=== PATIENT | male | born 1935 | race Caucasian/White ===

== ENCOUNTER 2019-03-12 13:23 | Observation (INO) | payer OTHER, SELFPAY ==
[2019-03-12] VITALS (8 sets, daily range): BP systolic 110–140; BP diastolic 45–60; PULSE 61–77; RESP 12–19; TEMP 36.2–36.4; O2SAT 94–100; BMI 35.6
[2019-03-12] MEDS: SODIUM CHLORIDE 0.9% 1,000 ML 150 ML IV (13:15)
[2019-03-12] MEDS: FAMOTIDINE 20 MG/50 ML PIGGYBACK 200 MG IV (13:15)
--- NOTE | 2019-03-12 13:29 | ED.ALLEREA ---
HPI - Allergic Reaction General Chief complaint: Allergic Reaction Stated complaint: anaphalaxis Time Seen by Provider: 03/12/19 13:28 Source: patient Mode of arrival: Ambulatory Limitations: no limitations History of Present Illness HPI narrative: 83-year-old male comes to the emergency department with complaint of anaphylaxis. Patient states that he had not any new exposures that he is aware of. He has a history of allergy to iodinated contrast. He has not had any contrast recently. Patient had his normal medic medications, his normal breakfast. He had cough ENT. These are all things that he normally drinks and are not new products. He has not had any medications or dose changes. He states he takes alendronate which is once weekly but he has been on that for 3 weeks. Patient is denying any other new changes or suspicious exposures. He had itching, noted he had swelling of his lips, he had stridor and muffled voice. He had lightheadedness and had episode of syncope with about a minute loss of consciousness. This occurred while he was on the toilet 1st noticed symptoms. Patient states that he did not hit his head. He was able to lower himself to the floor. He denies any chest pain or shortness of breath. He did have vomiting with EMS. He did not have any diarrhea. He had rash and urticaria with itching. He received 3 doses of epinephrine from EMS and route as well as Benadryl 50 mg. Patient states he feels shaky at this time but his symptoms have almost completely resolved. His rash is nearly resolving. His lip swelling has been decreasing. And his voice has improved rapidly. He does have a cardiac history with defibrillator in place for a cardiac arrhythmia. He Shiley states atrial fibrillation but was not 100% sure. Patient it is like is on Pradaxa for this. He does have his card for his defibrillator. Related Data Home Medications Medication Instructions Recorded Confirmed alendronate 70 mg PO QWEEK 03/12/19 03/12/19 amiodarone 200 mg PO DAILY 03/12/19 03/12/19 amlodipine 2.5 mg PO DAILY 03/12/19 03/12/19 dabigatran etexilate [Pradaxa] 150 mg PO BID 03/12/19 03/12/19 finasteride 5 mg PO DAILY 03/12/19 03/12/19 furosemide 20 mg PO BID 03/12/19 03/12/19 losartan 25 mg PO QPM 03/12/19 03/12/19 losartan 50 mg PO QAM 03/12/19 03/12/19 potassium chloride [K-Tab] 10 meq PO DAILY 03/12/19 03/12/19 simvastatin 20 mg PO QPM 03/12/19 03/12/19 tamsulosin 0.4 mg PO QPM 03/12/19 03/12/19 Review of Systems Review of Systems ROS Unobtainable: All systems reviewed & are unremarkable except as noted in HPI and below PFSH Medical History Arrhythmia (Acute) Atrial fibrillation (Acute) BPH (benign prostatic hyperplasia) (Acute) Hyperlipidemia (Acute) Hypertension (Acute) Osteoporosis (Acute) Surgical History AICD (automatic cardioverter/defibrillator) present (Acute) H/O cataract removal with insertion of prosthetic lens (Acute) H/O umbilical hernia repair (Acute) History of tonsillectomy (Acute) Family History (Updated 03/12/19 @ 19:02 by Lorena Archibald DO) Mother Cervical cancer Father No problems noted. Social History (Updated 03/12/19 @ 15:26 by Batsheva Trevino DO) Smoking Status: Never smoker alcohol intake: current substance use type: does not use Family History Mother Cervical cancer Father No problems noted. Social History (Updated 03/12/19 @ 15:26 by Batsheva Trevino DO) Smoking Status: Never smoker alcohol intake: current substance use type: does not use Exam Narrative Exam Narrative: GEN: Obese male, alert and oriented x 3, patient appears to be in moderate distress. HEENT: Atraumatic, pupils are equal round reactive to light, extraocular movements are intact, nares are clear, patient has significant swelling of his right upper lip although patient and EMS state is improved no oropharyngeal swelling. Throat is clear without any exudates, erythema, tonsillar enlargement or uvular deviation, no stridor. No muffled voice. HEART: Regular rate and rhythm without murmur, clicks, rubs. Pulses are equal in upper and lower extremities LUNGS:Lungs clear to auscultation, no wheezes, rales, crackles, chest moves symmetrically tachypnea or accessory muscle use. ABD:bowel sounds normal, soft, non-tender, no guarding, rebound, rigidity, no masses noted, no hepatosplenomegaly, patient has some emesis on his shirt. :No CVA tenderness MSCL: Non-tender, no muscle atrophy, muscles strength 5/5 upper and lower extremities, full range of motion. NEURO:CN 2-12 intact, sensation normal, reflexes 2/4 upper and lower extremities. SKIN: Urticaria across the abdomen as well as bilateral axilla. It is erythematous raised wheals. Initial Vital Signs Initial Vital Signs: Vital Signs Temperature 97.1 F L 03/12/19 13:30 Pulse Rate 62 03/12/19 13:30 Respiratory Rate 12 03/12/19 13:30 Blood Pressure 128/53 L 03/12/19 13:30 Pulse Oximetry 97 03/12/19 13:30 Course Orders Ordered: ED Orders 03/12/19 13:28 XR chest 1V Stat 03/12/19 13:29 EKG-12 Lead Stat 03/12/19 13:30 Complete Blood Count AUTO DIFF Stat 03/12/19 13:52 Comprehensive Metabolic Panel Urgent Troponin I Urgent Acetaminophen (Tylenol) 650 mg PO Q6HR PRN PRN Reason: As Needed for Fever/Mild Pain Al Hydrox/Mg Hydrox/Simethicone (Maalox Plus) 30 ml PO Q6HR PRN PRN Reason: Dyspepsia Bisacodyl (Dulcolax) 10 mg RI DAILY PRN PRN Reason: Constipation Calcium Carbonate (Tums) 1,000 mg PO Q4HR PRN PRN Reason: Dyspepsia Heparin Sodium (Porcine) (Heparin) 5,000 unit SUBCUT BID KATALINA Sodium Chloride (Normal Saline 0.9%) 1,000 mls @ 150 mls/hr IV CONT KATALINA Last Infusion: 03/12/19 16:12 Dose: 0 mls/hr Documented by: Admin: 03/12/19 13:15 Dose: 150 mls/hr Documented by: YAHAIRA Magnesium Hydroxide (Milk Of Magnesia) 30 ml PO DAILY PRN PRN Reason: Constipation Discontinued Medications Famotidine (Pepcid) 20 mg in 50 mls @ 200 mls/hr IV NOW ONE Stop: 03/12/19 13:42 Last Infusion: 03/12/19 13:30 Dose: 0 mls/hr Documented by: Admin: 03/12/19 13:15 Dose: 200 mls/hr Documented by: YAHAIRA Methylprednisolone (Solu-Medrol 125 Mg Vial) 125 mg IV NOW ONE Stop: 03/12/19 13:29 Last Admin: 03/12/19 13:39 Dose: 125 mg Documented by: YAHAIRA Vital Signs Vital signs: Vital Signs - 8 hr 03/12/19 13:30 03/12/19 14:00 03/12/19 15:00 Temperature 97.1 F L Pulse Rate 62 67 61 Respiratory Rate 12 19 15 Blood Pressure 128/53 L Blood Pressure [Right Arm] 127/51 L 125/49 L Pulse Oximetry 97 100 100 03/12/19 15:30 Temperature Pulse Rate 62 Respiratory Rate 17 Blood Pressure Blood Pressure [Right Arm] 110/45 L Pulse Oximetry 98 MDM - Allergic Reaction Lab Data Attestation: I reviewed the patient's lab results. Result diagrams: 03/12/19 13:30 03/12/19 13:52 Labs: Lab Results 03/12/19 03/12/19 Range/Units 13:30 13:52 WBC 11.2 H (4.5-11.0) X10^3/uL RBC 5.08 (4.5-5.9) X10^6/uL Hgb 15.9 (13.5-17.5) g/dL Hct 46.3 (41-53) % MCV 91.1 (80-100) fL MCH 31.4 (26-34) PG MCHC 34.4 (30-36) % RDW 13.5 (11.6-14.8) % Plt Count 265 (150-400) X10^3/uL Neut % (Auto) 54.2 (50-75) % Lymph % (Auto) 37.5 (25-40) % [place] % (Auto) 6.8 (3-14) % Eos % (Auto) 0.5 L (2-4) % Baso % (Auto) 1.0 (0-2) % Neut # (Auto) 6100 (5368-5506) /uL Lymph # (Auto) 4200 (1637-7959) /uL [place] # (Auto) 800 (0-900) /uL Eos # (Auto) 100 (0-450) /uL Baso # (Auto) 100 (0-100) /uL Sodium 138 (137-145) mmol/L Potassium 3.7 (3.4-5.1) mmol/L Chloride 103 (98-107) mmol/L Carbon Dioxide 25 (22-32) mmol/L BUN 28 H (9-20) mg/dL Creatinine 1.20 (0.66-1.25) mg/dL Estimated GFR 57.8 L (>60) mL/min BUN/Creatinine Ratio 23.3 H (6-22) Glucose 164 H (80-110) mg/dL Calcium 8.7 (8.4-10.2) mg/dL Total Bilirubin 0.6 (0.2-1.3) mg/dL AST 30 (17-59) IU/L ALT 35 (21-72) IU/L Alkaline Phosphatase 65 (38-126) U/L Troponin I < 0.012 (0.01-0.034) ng/mL Total Protein 6.2 L (6.3-8.2) g/dL Albumin 3.8 (3.5-5.0) g/dL Globulin 2.4 (1.7-4.1) g/dL Albumin/Globulin Ratio 1.6 (1.0-2.8) Imaging Data Chest x-ray: Radiologist's impression: [address] [address] XRay Report Signed Patient: Parish Swenson EMR#: [id number] : 6Acct:[id number] Age/Sex: 83 / MDate of Service: 03/12/19 Loc: ED Accession Number: [id number] Procedure: XR chest 1V Ordering Provider: Batsheva Trevino D.O. PROCEDURE: XR CHEST 1V INDICATIONS: anaphylaxis. vomiting TECHNIQUE: One view of the chest was acquired. COMPARISON: None. FINDINGS: Surgical changes and devices: Is a cardiac pacemaker in appropriate position. Lungs and pleura: Lungs are clear. No pleural effusions or pneumothorax. Mediastinum: Mediastinal contours appear normal. Heart size is normal. Bones and chest wall: No suspicious bony lesions. Overlying soft tissues appear unremarkable. IMPRESSION: No acute cardiopulmonary disease. Dictated by: Mora Farley M.D. on 03/12/2019 at 14:22 Approved by: Mora Farley M.D. on 03/12/2019 at 14:27 ECG Data Attestation: I personally reviewed and interpreted this ECG as follows: Interpretation: Sinus bradycardia with a left bundle branch block. Rate of 59 P are 123 QRS of 140 and QTC of 469. No ST changes. No priors available. MDM Narrative Medical decision making narrative: Patient's urticaria has almost completely resolved on re-evaluation, the swelling of his lips I can't really appreciate maybe very mild at this point but has significantly improved from his initial arrival. Patient feels much better although still shaky. On repeat evaluation swelling has resolved shakiness has resolved. Patient's initial lab work show a mild leukocytosis, no elevation in troponin, chest x-ray and EKG showed left bundle branch but no other acute changes. Patient and I discussed you I would like to observation as he has had 3 doses of epi required for his symptoms to resolve. I spoke with Dr. Archibald our hospitalist who accepts. Discharge Plan Departure Patient Disposition: Admitted as Observation Clinical Impression: Anaphylactic reaction, Syncope Discharge Date/Time: 03/12/19 16:13 Admit Date/Time: 03/12/19 15:52 Admit Provider: Lorena Archibald
[2019-03-12 13:35] LABS: Add Manual Diff / Slide Review NO; Basophils Absolute Auto 100 /uL (0-100); Eosinophils Absolute Auto 100 /uL (0-450); Eosinophils Percent Auto 0.5 % (2-4); Hematocrit 46.3 % (41-53); Hemoglobin 15.9 g/dL (13.5-17.5); Lymphocytes Absolute Auto 4200 /uL (1100-4500); Lymphocytes Percent Auto 37.5 % (25-40); Mean Corpuscular HGB Conc 34.4 % (30-36); Mean Corpuscular Hemoglobin 31.4 PG (26-34); Mean Corpuscular Volume 91.1 fL (80-100); Monocytes Absolute Auto 800 /uL (0-900); Monocytes Percent Auto 6.8 % (3-14); Neutrophils Absolute Auto 6100 /uL (1500-7000); Neutrophils Percent Auto 54.2 % (50-75); Platelet Count 265 X10^3/uL (150-400); Red Blood Cell Count 5.08 X10^6/uL (4.5-5.9); Red Cell Distribution Width 13.5 % (11.6-14.8); White Blood Cell Count 11.2 X10^3/uL (4.5-11.0)
[2019-03-12] MEDS: methylPREDNISolone 125 MG/2 ML VIAL IV (13:39)
--- NOTE | 2019-03-12 13:39 | PC.NURSE ---
Pt arrived via EMS AFD for anaphylaxis. only known allergy to iodine which he has not touched today. Per EMS stridorous on scene with diffuse urticaria on trunk and arms as well as severe periorbital edema and swollen lips. 0.9mg epi IM, 50mg benadryl, and 4mg zofran given in field. arrived with emesis on shirt and sheets. protecting airway at this time. Lungs sound clear. Pt with ICD. placed on cardiac monitoring. HR 58-60 at this time SB. Per EMS, urticaria improving, speech less hoarse than on scene and swelling in face decreasing. Pepcid and solumedrol given on arrival. Arrived with EMS 18G in RFA and ED placed 20G LAC. labs sent. Dr Trevino at bedside. remains on 2L O2. XR obtained. Will continue to monitor
[2019-03-12 14:14] LABS: Alanine Aminotransferase 35 IU/L (21-72); Albumin 3.8 g/dL (3.5-5.0); Albumin Globulin Ratio 1.6 (1.0-2.8); Alkaline Phosphatase 65 U/L (38-126); Aspartate Aminotransferase 30 IU/L (17-59); BUN Creatinine Ratio 23.3 (6-22); Bilirubin Total 0.6 mg/dL (0.2-1.3); Blood Urea Nitrogen 28 mg/dL (9-20); Calcium 8.7 mg/dL (8.4-10.2); Carbon Dioxide 25 mmol/L (22-32); Chloride 103 mmol/L (98-107); Estimated Glomerular Filt Rate 57.8 mL/min (>60); Globulin 2.4 g/dL (1.7-4.1); Glucose 164 mg/dL (80-110); HEMOLYSIS < 15 (0-50); Potassium 3.7 mmol/L (3.4-5.1); Sodium 138 mmol/L (137-145); Total Protein 6.2 g/dL (6.3-8.2)
[2019-03-12 14:25] LABS: Troponin I < 0.012 ng/mL (0.01-0.034)
--- NOTE | 2019-03-12 15:02 | PC.NURSE ---
pt appears well. susanna, advised normal from multiple doses of epi. speech clear. resting. urticaria no longer noted. remains on cardiac monitoring. NAD
--- NOTE | 2019-03-12 18:59 | PM.HP.1 ---
History of Present Illness History of Present Illness Date Patient Seen: 03/12/19 Chief complaint: anaphalaxis Narrative: Parish Swenson is a 83-year-old male with past medical history significant for hypertension, hyperlipidemia, BPH, atrial fibrillation status post pacemaker and on Pradaxa who presented to the ED via EMS with an acute anaphylactic reaction. The patient reports that he was in his usual state of health when he awoke this morning. He went about his normal routine and ate breakfast which included raisin bran, toast, and a cup of coffee. He then did the dishes and met the cable service man outside his home to fix the cable connection. He pulled his mower out of the shed and followed the cable man to various spots throughout the yard. He then went inside and had some indigestion in his epigastrum then went to the bathroom. While the patient was having a bowel movement he began having fulminant pruritus of his entire body including his ears and chest with uticarial rash. He then reports it felt as though he was getting a fever blister on his lip and it began getting harder and harder so he slid off the toilet and crawled to the bathroom door and opened it to call out for his daughter. The patient subsequently had a syncopal episode in which he was unconscious for seconds to a minute. He did not hit his head. His daughter called 911 and EMS arrived and found the patient with muffled voice and stridor. The patient received epinephrine x 3 and Benadryl. When he arrived to the ED his uticarial rash and lip swelling had mostly resolved and at the time of my exam there are no significant findings on clinical exam. He received methylprednisolone 125 mg IV x 1 and famotidine. He currently endorses mild throat tightness that is chronic with dry cough with occasional phlegm. He denies any chest pain or shortness of breath. He did have vomiting with EMS. He did not have any diarrhea but reports voluminous BM. He also has some mild tenderness to touch on posterior aspect of left arm possibly where he slid off the toilet. He has no other complaints and denies headache, lightheadedness, dizziness, vision changes such as double vision or blurry vision, diaphoresis, sore throat, shortness of breath, fever, chills nausea, vomiting, fever, chills, dysuria, diarrhea or constipation. The patient was admitted for close observation overnight. 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 Patient History Medical History Arrhythmia (Acute) Atrial fibrillation (Acute) BPH (benign prostatic hyperplasia) (Acute) Hyperlipidemia (Acute) Hypertension (Acute) Osteoporosis (Acute) Surgical History AICD (automatic cardioverter/defibrillator) present (Acute) H/O cataract removal with insertion of prosthetic lens (Acute) H/O umbilical hernia repair (Acute) History of tonsillectomy (Acute) Family History Mother Cervical cancer Father No problems noted. Social History (Updated 03/12/19 @ 15:26 by Batsheva Trevino DO) Smoking Status: Never smoker alcohol intake: current substance use type: does not use Family & Social History Family History Mother Cervical cancer Father No problems noted. Safety & Behavioral: Feels Safe in Current Yes Environment Been Physically Hurt or No Threatened By a Person Suicidal Ideation Description None Suicide Plan Description No Plan Tobacco & Substance use: Smoking Status Never smoker alcohol intake Occasionally Meds Home Medications and Allergies Home Medications Medication Instructions Recorded Confirmed Type alendronate 70 mg PO QWEEK 03/12/19 03/12/19 History amiodarone 200 mg PO DAILY 03/12/19 03/12/19 History amlodipine 2.5 mg PO DAILY 03/12/19 03/12/19 History dabigatran etexilate [Pradaxa] 150 mg PO BID 03/12/19 03/12/19 History finasteride 5 mg PO DAILY 03/12/19 03/12/19 History furosemide 20 mg PO BID 03/12/19 03/12/19 History losartan 25 mg PO QPM 03/12/19 03/12/19 History losartan 50 mg PO QAM 03/12/19 03/12/19 History potassium chloride [K-Tab] 10 meq PO DAILY 03/12/19 03/12/19 History simvastatin 20 mg PO QPM 03/12/19 03/12/19 History tamsulosin 0.4 mg PO QPM 03/12/19 03/12/19 History Review of Systems Review of Systems Narrative: A 10 system comprehensive review of systems was conducted with the patient and found to be negative except as above in the History of Present Illness. Exam Vital Signs (past 8 hours): - 03/12/19 13:30 03/12/19 14:00 03/12/19 15:00 Temperature 97.1 F L Pulse Rate 62 67 61 Respiratory Rate 12 19 15 Blood Pressure 128/53 L Blood Pressure [Right Arm] 127/51 L 125/49 L Pulse Oximetry 97 100 100 03/12/19 15:30 03/12/19 16:12 03/12/19 16:30 Temperature 97.5 F L Pulse Rate 62 62 64 Respiratory Rate 17 16 18 Blood Pressure 137/57 L 140/53 L Blood Pressure [Right Arm] 110/45 L Pulse Oximetry 98 96 97 Oxygen Delivery Method Room Air Oxygen Flow Rate 0 Narrative Exam Narrative: General: Elderly gentleman sitting in bed and in no acute distress, well-developed, well-nourished, mildly tremulous secondary to medication, appropriately interactive. HEENT: Normocephalic, atraumatic. External ears without defect. Pupils equal, round, and reactive to light. Anicteric sclerae, moist conjunctivae, and no lid lag. Oropharynx free of erythema or edema with moist oral mucosa. Neck: Supple without edema and full range of motion. No jugular venous distension. No lymphadenopathy or thyromegaly. Cardiovascular: Regular rhythm and rate without murmurs, rubs, or gallops appreciated. Pulmonary: Clear to auscultation bilaterally without crackles, wheezes, or rhonchi. Normal respiratory effort with no use of accessory muscles. Abdomen: Soft, bowel sounds present, nontender, nondistended. No hepatosplenomegaly or masses appreciated. Extremities: No clubbing, cyanosis, or edema. Skin: Normal temperature, turgor, and texture; no rash, ulcers, or subcutaneous nodules appreciated. No apparent insect bites, abrasions, or entry wounds. Neurological: Cranial nerves grossly intact. Psychiatric: Normal mood and affect. Alert and oriented to person, place, and time. Mild cognitive impairment with short-term memory recall deficit. Objective Labs Result Diagrams: 03/12/19 13:30 03/12/19 13:52 Labs: Laboratory Results - last 24 hr 03/12/19 03/12/19 13:30 13:52 WBC 11.2 H RBC 5.08 Hgb 15.9 Hct 46.3 MCV 91.1 MCH 31.4 MCHC 34.4 RDW 13.5 Plt Count 265 Neut % (Auto) 54.2 Lymph % (Auto) 37.5 [place] % (Auto) 6.8 Eos % (Auto) 0.5 L Baso % (Auto) 1.0 Neut # (Auto) 6100 Lymph # (Auto) 4200 [place] # (Auto) 800 Eos # (Auto) 100 Baso # (Auto) 100 Sodium 138 Potassium 3.7 Chloride 103 Carbon Dioxide 25 BUN 28 H Creatinine 1.20 Estimated GFR 57.8 L BUN/Creatinine Ratio 23.3 H Glucose 164 H Calcium 8.7 Total Bilirubin 0.6 AST 30 ALT 35 Alkaline Phosphatase 65 Troponin I < 0.012 Total Protein 6.2 L Albumin 3.8 Globulin 2.4 Albumin/Globulin Ratio 1.6 Assessment & Plan Assessment & Plan narrative: Parish Swenson is a 83-year-old male with past medical history significant for hypertension, hyperlipidemia, BPH, atrial fibrillation status post pacemaker and on Pradaxa who presented to the ED via EMS with an acute anaphylactic reaction. 1. Acute anaphylactic reaction, unclear etiology, not present on admission. Resolved. -Patient had an anaphylactic reaction with fulminant pruritus with urticarial rash and angioedema of lips and throat little thing and multiple voids and stridor which resolved with epinephrine x3 and Benadryl. -Received methylprednisolone 125 mg IV x1 on famotidine 20 mg IV x1 in ED. -Patient had no new exposures, changes in medication, new medications, insect bite or new foods. Of note patient does have iodinated contrast allergy with urticarial rash. -Continue to monitor closely on telemetry. -Continuous pulse oximetry and frequent neuro checks. -Continue loratidine 10 mg daily and ranitidne 150 mg daily for anti-histamine effect. -Patient will need an Epi-Pen at time of discharge. Recommend allergy testing. 2. Hypertension, chronic, present on admission. Stable. -Held antihypertensives (beta-blockers, SOCORRO inhibitors, calcium channel blockers, angiotensin-receptor blockers, or diuretics) as they may aggregate anaphylaxis and were associated with increased organ system involvement and increased odds of hospital admission, independent of age, gender, suspected cause, or pre-existing lung disease. 3. Hyperlipidemia, chronic, present on admission. Stable -Continue simvastatin 20 mg daily at bedtime. 4. Paroxysmal atrial fibrillation status post pacemaker and on chronic anticoagulation with Pradaxa, chronic, present on admission. Stable. -Continue amiodarone 200 mg daily and Pradaxa 150 mg twice daily. 5. BPH, chronic, present on admission. Stable. -Continue finasteride 5 mg daily and tamsulosin 0.4 mg daily. Patient wishes to make code status DNR/DNI but will allow for BiPAP, vasopressors, antibiotics, and IVF. Patient is admitted under observation status with expected length of stay less than 2 midnights due to severity of presenting symptoms, risk of adverse event, and complexity of treatment plan. Quality VTE Deep Vein Thrombosis/Pulmonary Embolism Present on Admission: No
[2019-03-12] MEDS: HEPARIN 5,000 UNIT/ML VIAL 5000 UNIT SUBCUT (21:07)
[2019-03-12] MEDS: LORATADINE 10 MG TABLET PO (23:58)
[2019-03-13 00:03] VITALS: BP 133/65; PULSE 65; RESP 14; TEMP 36.9; O2SAT 94
[2019-03-13 03:30] VITALS: BP 125/62; PULSE 61; RESP 16; TEMP 36.3; O2SAT 95
[2019-03-13 07:25] VITALS: BP 139/61; PULSE 63; RESP 16; TEMP 36.8; O2SAT 96
[2019-03-13 07:40] VITALS: O2SAT 97
[2019-03-13] MEDS: DABIGATRAN 75 MG CAPSULE 150 MG PO (08:26)
[2019-03-13] MEDS: AMIODARONE 200 MG TABLET PO (08:29)
[2019-03-13] MEDS: FINASTERIDE 5 MG TABLET PO (08:29)
--- NOTE | 2019-03-13 08:41 | CM.DANOTE ---
DCP: Case received, EMR reviewed and met with patient. Introduced self and role. Was able to meet with patient in his room and obtain baseline activity and health information. DCP assessment/template, completed with information currently available. Patient is an 83 year old male who admitted yesterday afternoon to the care of the hospitalist team. PCP: Dr. Penn. Payer: confirmed: [facility]. Patient came to the hospital via EMS for a potential anaphalactic reaction. Patient had been home and developed some lip swelling, as well as syncopal episode. He was home with his daughter, when she had called 911. Patient was brought to hospital after receiving meds by EMS, as symptoms improved. Patient lives here part of the time, as well as in [place]. He is currently staying with his daughter. He is independent and active. He has a defibrillator, secondary to history of cardiac arrhythmia. 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 P: DCP to continue to follow. He should be able to go home when he is medically stable, he could potentially be discharged today. Nicole Cardenas RN/Information Developer
--- NOTE | 2019-03-13 09:05 | PM.DS.1 ---
History of Present Illness History of Present Illness Date Patient Seen: 03/13/19 Time Patient Seen: 09:06 Chief complaint: anaphalaxis Narrative: As per Dr. Archibald, Parish Swenson is a 83-year-old male with past medical history significant for hypertension, hyperlipidemia, BPH, atrial fibrillation status post pacemaker and on Pradaxa who presented to the ED via EMS with an acute anaphylactic reaction. The patient reports that he was in his usual state of health when he awoke this morning. He went about his normal routine and ate breakfast which included raisin bran, toast, and a cup of coffee. He then did the dishes and met the [employer] service man outside his home to fix the cable connection. He pulled his mower out of the shed and followed the cable man to various spots throughout the yard. He then went inside and had some indigestion in his epigastrum then went to the bathroom. While the patient was having a bowel movement he began having fulminant pruritus of his entire body including his ears and chest with uticarial rash. He then reports it felt as though he was getting a fever blister on his lip and it began getting harder and harder so he slid off the toilet and crawled to the bathroom door and opened it to call out for his daughter. The patient subsequently had a syncopal episode in which he was unconscious for seconds to a minute. He did not hit his head. His daughter called 911 and EMS arrived and found the patient with muffled voice and stridor. The patient received epinephrine x 3 and Benadryl. When he arrived to the ED his uticarial rash and lip swelling had mostly resolved and at the time of my exam there are no significant findings on clinical exam. He received methylprednisolone 125 mg IV x 1 and famotidine. He currently endorses mild throat tightness that is chronic with dry cough with occasional phlegm. He denies any chest pain or shortness of breath. He did have vomiting with EMS. He did not have any diarrhea but reports voluminous BM. He also has some mild tenderness to touch on posterior aspect of left arm possibly where he slid off the toilet. He has no other complaints and denies headache, lightheadedness, dizziness, vision changes such as double vision or blurry vision, diaphoresis, sore throat, shortness of breath, fever, chills nausea, vomiting, fever, chills, dysuria, diarrhea or constipation. The patient was admitted for close observation overnight. 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 Discharge Providers Provider Date of admission: 03/12/19 15:52 Discharge Date: 03/13/19 Discharge provider: Wang Guerin DO Summary Hospital Course Discharge Diagnosis: Parish Swenson is a 83-year-old male with past medical history significant for hypertension, hyperlipidemia, BPH, atrial fibrillation status post pacemaker and on Pradaxa who presented to the ED via EMS with an acute anaphylactic reaction. His symptoms had resolved on admission and he had no further symptoms the following morning. He was discharged home in good condition. 1. Acute anaphylactic reaction, unclear etiology, not present on admission. Resolved. 2. Hypertension, chronic, present on admission. Stable. 3. Hyperlipidemia, chronic, present on admission. Stable 4. Paroxysmal atrial fibrillation status post pacemaker and on chronic anticoagulation with Pradaxa, chronic, present on admission. Stable. 5. BPH, chronic, present on admission. Stable. Hospital Course: Parish Swenson is a 83-year-old male with past medical history significant for hypertension, hyperlipidemia, BPH, atrial fibrillation status post pacemaker and on Pradaxa who presented to the ED via EMS with an acute anaphylactic reaction. His symptoms had resolved on admission and he had no further symptoms the following morning. He was discharged home in good condition. 1. Acute anaphylactic reaction, unclear etiology, not present on admission. Resolved. -Patient had an anaphylactic reaction with fulminant pruritus with urticarial rash and angioedema of lips and throat little thing and multiple voids and stridor which resolved with epinephrine x3 and Benadryl. -Received methylprednisolone 125 mg IV x1 on famotidine 20 mg IV x1 in ED. No further treatment needed. Patient has benadryl at home and epi-pen was prescribed. -Patient had no new exposures, changes in medication, new medications, insect bite or new foods. Of note patient does have iodinated contrast allergy with urticarial rash. -Patient was prescribed epi-pen to mail order pharmacy and was provided with paper Rx as well. Recommend allergy testing. 2. Hypertension, chronic, present on admission. Stable. -Held antihypertensives (beta-blockers, SOCORRO inhibitors, calcium channel blockers, angiotensin-receptor blockers, or diuretics) as they may aggregate anaphylaxis and were associated with increased organ system involvement and increased odds of hospital admission, independent of age, gender, suspected cause, or pre-existing lung disease. -Patient can resume home amlodipine, dose increased to 5 mg from 2.5 mg. Losartan was held. Patient should follow up with primary care provider within the next two weeks for BP management. 3. Hyperlipidemia, chronic, present on admission. Stable -Continue simvastatin 20 mg daily at bedtime. 4. Paroxysmal atrial fibrillation status post pacemaker and on chronic anticoagulation with Pradaxa, chronic, present on admission. Stable. -Continue amiodarone 200 mg daily and Pradaxa 150 mg twice daily. 5. BPH, chronic, present on admission. Stable. -Continue finasteride 5 mg daily and tamsulosin 0.4 mg daily. Status at Discharge Cognitive/behavioral status at discharge: oriented Functional status at discharge: independent ambulation Overall status at discharge: patient is back to baseline Exam Vital Signs (past 8 hours): - 03/13/19 03:30 03/13/19 07:25 Temperature 97.4 F L 98.2 F Pulse Rate 61 63 Respiratory Rate 16 16 Blood Pressure 125/62 139/61 Pulse Oximetry 95 96 Oxygen Delivery Method Room Air Oxygen Flow Rate 0 Narrative Exam Narrative: GENERAL APPEARANCE: Well developed, well nourished, in no acute distress. SKIN: Inspection of the skin reveals no rashes, ulcerations or petechiae. HEENT: The sclerae were anicteric and conjunctivae were pink and moist. Extraocular movements were intact and pupils were equal, round with normal accommodation. External inspection of the ears and nose showed no scars, lesions, or masses. Lips, teeth, and gums showed normal mucosa. The oral mucosa, hard and soft palate, tongue and posterior pharynx were unremarkable. NECK: Supple and symmetric. There was no thyroid enlargement, and no tenderness, or masses were felt. CHEST: Normal AP diameter and normal contour without any kyphoscoliosis. LUNGS: Auscultation of the lungs revealed no wheezes, rhonchi, or rales. CARDIOVASCULAR: There was a regular rate and rhythm without any murmurs, gallops, rubs. Peripheral pulses were 2+ and symmetric. ABDOMEN: Soft and nontender with normal bowel sounds. No ascites was noted. MUSCULOSKELETAL: There was no tenderness or effusions noted. Muscle strength and tone were normal. EXTREMITIES: No cyanosis, clubbing or edema. NEUROLOGIC: Alert and oriented x 3. Normal affect. Gait was normal. Strength is +5/5 in the Upper Extremities and Lower Extremities Bilaterally. Sensation to touch was normal. Objective Labs Result Diagrams: 03/12/19 13:30 03/12/19 13:52 Labs: Laboratory Results - last 24 hr 03/12/19 03/12/19 13:30 13:52 WBC 11.2 H RBC 5.08 Hgb 15.9 Hct 46.3 MCV 91.1 MCH 31.4 MCHC 34.4 RDW 13.5 Plt Count 265 Neut % (Auto) 54.2 Lymph % (Auto) 37.5 [place] % (Auto) 6.8 Eos % (Auto) 0.5 L Baso % (Auto) 1.0 Neut # (Auto) 6100 Lymph # (Auto) 4200 [place] # (Auto) 800 Eos # (Auto) 100 Baso # (Auto) 100 Sodium 138 Potassium 3.7 Chloride 103 Carbon Dioxide 25 BUN 28 H Creatinine 1.20 Estimated GFR 57.8 L BUN/Creatinine Ratio 23.3 H Glucose 164 H Calcium 8.7 Total Bilirubin 0.6 AST 30 ALT 35 Alkaline Phosphatase 65 Troponin I < 0.012 Total Protein 6.2 L Albumin 3.8 Globulin 2.4 Albumin/Globulin Ratio 1.6 Discharge Plan Discharge Plan Patient Disposition: Home Discharge comment: You were admitted to the hospital for an allergic reaction, it is unknown what caused this reaction at this time. You should stop taking your losartan as this can be a rare side effect of this medication. I have given you a prescription for an increased dose of your amlodipine to take in the mean time. You should follow up with your primary care provider in the next few weeks for further BP management. Discharge Med Rec/Prescriptions Prescriptions: New amlodipine 5 mg tablet 5 mg PO DAILY 30 Days Qty: 30 RF: 0 epinephrine [EpiPen] 0.3 mg/0.3 mL auto-injector 0.3 mg IM Q10M PRN (Reason: anaphylaxis) 30 Days Qty: 3 RF: 0 epinephrine [EpiPen] 0.3 mg/0.3 mL auto-injector 0.3 mg IM Q10M PRN (Reason: anaphylaxis) 30 Days Qty: 3 RF: 0 Continued amiodarone 200 mg Tablet 200 mg PO DAILY RF: 0 alendronate 70 mg Tablet 70 mg PO QWEEK RF: 0 potassium chloride [K-Tab] 10 mEq Tablet Extended Release 10 meq PO DAILY RF: 0 tamsulosin 0.4 mg Capsule 0.4 mg PO QPM RF: 0 simvastatin 20 mg Tablet 20 mg PO QPM RF: 0 furosemide 20 mg Tablet 20 mg PO BID RF: 0 finasteride 5 mg Tablet 5 mg PO DAILY RF: 0 Pradaxa 150 mg Capsule 150 mg PO BID RF: 0 Discontinued losartan 50 mg Tablet 50 mg PO QAM RF: 0 amlodipine 2.5 mg Tablet 2.5 mg PO DAILY RF: 0 losartan 50 mg Tablet 25 mg PO QPM RF: 0 Provider Discharge Instructions Diet: Diet as Tolerated Activity: As tolerated Visit Report/Discharge Packet Instructions: DI for Angioedema, DI for Anaphylaxis Discharge Data Attending Provider: Lorena Archibald Admit Date/Time: 03/12/19 15:52 Quality VTE Deep Vein Thrombosis/Pulmonary Embolism Present on Admission: No
--- NOTE | 2019-03-13 11:47 | PC.NURSE ---
Discharge: Reviewed d/c instructions for home. Dtr present for teaching. Discussed sxs of angioedema and having a reaction to medications or something else. losartan has been d/c for now. Pt given written instructions for an epipen but he was instructed to also ask his pharmacist when med was received for proper instructions on how to administer it. Has been up in room indep and denies any difficulty, no lightheadedness. Did review syncopy instructions. Given rx, questions answered. D/c home w/dtr.
== END 2019-03-13 10:30 | disposition home or self-care (01) ==
LOC: ED 15:35 → AC 15:53
PROVIDERS: Admitting Provider Internal Medicine; Emergency Provider Emergency Medicine; Visit Provider Internal Medicine
DX: T78.2XXA Anaphylactic shock, unspecified, initial encounter (principal); I10 Essential (primary) hypertension; E78.5 Hyperlipidemia, unspecified; I48.0 Paroxysmal atrial fibrillation; N40.0 Benign prostatic hyperplasia without lower urinary tract symptoms
CPT/HCPCS: 36415; 71045; 80053; 84484; 85025; 93005; 96361; 96374; 96375; 99283; 99285; 99291; G0378; J1644; J2930

== ENCOUNTER 2019-03-21 18:20 | Emergency (ER) | payer OTHER, SELFPAY ==
[2019-03-12 18:20] VITALS: BMI 35.6
[2019-03-21 18:24] VITALS: BP 126/70; PULSE 93; O2SAT 94
[2019-03-21] MEDS: methylPREDNISolone 125 MG/2 ML VIAL IV (18:25)
[2019-03-21] MEDS: EPINEPHrine 1 MG/ML AMPUL 0.5 MG IM (18:40)
[2019-03-21] MEDS: diphenhydrAMINE 50 MG/ML VIAL 25 MG IV (18:40)
[2019-03-21] MEDS: FAMOTIDINE 20 MG/50 ML PIGGYBACK 200 MG IV (18:40)
--- NOTE | 2019-03-21 18:42 | ED.ALLEREA ---
HPI - Allergic Reaction General Chief complaint: Allergic Reaction Stated complaint: Allergic Reaction Time Seen by Provider: 03/21/19 18:29 Source: patient and family Mode of arrival: Wheelchair Limitations: no limitations History of Present Illness HPI narrative: 83-year-old male nonsmoker with recent history of allergic reaction and unknown cause returns to the emergency department under similar circumstances. About 15-20 minutes prior to his arrival he admitted to widespread red, itchy rash and a small amount of swelling of his lower lip. He denies any difficulty with breathing or swallowing. He denies any chest pain or shortness of breath. He denies any nausea, vomiting or diarrhea. He took some Benadryl at home. He denies any exposure to new medications, foods, pets, lotions, soaps or other. MD complaint: allergic reaction Onset (ago): minute(s) Exposure: unknown Symptoms: rash, itching and lip swelling Severity: moderate Treatment prior to arrival: benadryl Previous Allergic Reaction History: none Related Data Home Medications Medication Instructions Recorded Confirmed Pradaxa 150 mg PO BID 03/12/19 03/12/19 alendronate 70 mg PO QWEEK 03/12/19 03/12/19 amiodarone 200 mg PO DAILY 03/12/19 03/12/19 finasteride 5 mg PO DAILY 03/12/19 03/12/19 furosemide 20 mg PO BID 03/12/19 03/12/19 potassium chloride [K-Tab] 10 meq PO DAILY 03/12/19 03/12/19 simvastatin 20 mg PO QPM 03/12/19 03/12/19 tamsulosin 0.4 mg PO QPM 03/12/19 03/12/19 Previous Rx's Medication Instructions Recorded amlodipine 5 mg PO DAILY 30 Days #30 tab 03/13/19 epinephrine [EpiPen] 0.3 mg IM Q10M PRN 30 Days #3 each 03/13/19 epinephrine [EpiPen] 0.3 mg IM Q10M PRN 30 Days #3 each 03/13/19 NS epinephrine [EpiPen 2-Elier] 0.3 mg IM Q15M PRN #2 each 03/21/19 prednisone 20 mg PO DAILY #5 tab 03/21/19 Review of Systems Constitutional Constitutional: Denies chills, Denies fatigue, Denies fever(s), Denies frequent falls, Denies lethargy and Denies weakness Eyes Eyes: Denies change in vision, Denies eye discharge, Denies irritation and Denies loss of vision ENT Ears, Nose, Mouth, and Throat: Denies change in voice, Denies dizziness, Denies neck pain, Denies sore throat and Denies throat swelling Cardiovascular Cardiovascular: Denies chest pain, Denies irregular heart rhythm, Denies lightheadedness, Denies palpitations, Denies dyspnea, Denies dyspnea on exertion and Denies orthopnea Respiratory Respiratory: Denies cough, Denies dyspnea, Denies dyspnea on exertion and Denies wheezing Gastrointestinal Gastrointestinal: Denies abdominal pain, Denies change in bowel habits, Denies diarrhea, Denies nausea and Denies vomiting Genitourinary Genitourinary: Denies hematuria, Denies flank pain, Denies urinary incontinence and Denies urinary urgency Musculoskeletal Musculoskeletal: Denies back pain, Denies muscle weakness, Denies neck pain, Denies numbness and Denies tingling Integumentary/Breasts Skin/Breast: Denies pruritus, Denies erythema, Reports rash and Denies wounds Neurologic Neurologic: Denies behavioral changes, Denies confusion, Denies dizziness, Denies frequent falls, Denies loss of vision, Denies numbness, Denies tingling and Denies weakness Psychiatric Psychiatric: Denies anxiety, Denies behavioral changes, Denies confusion, Denies depression, Denies homicidal ideation and Denies suicidal ideation Endocrine Endocrine: Denies fatigue, Denies flushing and Denies palpitations Hematologic/Lymphatic Hematologic/Lymphatic: Denies easy bruising Allergic/Immunologic Allergic/Immunologic: Denies urticaria, Denies throat swelling and Denies wheezing Patient History Social History (Updated 03/12/19 @ 15:26 by Batsheva Trevino DO) household members: family Smoking Status: Never smoker alcohol intake: current substance use type: does not use Exam Initial Vital Signs Initial Vital Signs: Vital Signs Pulse Rate 93 H 03/21/19 18:24 Blood Pressure 126/70 03/21/19 18:24 Pulse Oximetry 94 03/21/19 18:24 Const General: cooperative and well developed Nutritional Appearance: well nourished Orientation: alert, awake, oriented x3 and not confused HENMT Head: normocephalic and atraumatic Ears: external ears normal and TM's normal bilaterally Nose: external nose normal and No nasal discharge Face and sinus: sinuses nontender, face symmetric, no sinus tenderness and No dry mucous membranes Mouth: oral mucosae normal and moist mucous membranes Teeth and gingiva: dentition normal Throat: tonsils normal and uvula midline Eyes General: appearance normal, both eyes and all related structures Eyelids: eyelids normal Conjunctivae: conjunctivae normal Sclera: sclerae normal Pupils: PERRL EOM: EOM intact bilaterally Neck Neck: normal visual inspection, trachea midline, No lymphadenopathy, No midline deformity and No JVD Lymphatic: No lymphedema Chest Chest: normal inspection of the chest Resp Effort & Inspection: normal respiratory effort, able to speak in complete sentences, no respiratory distress and no use of accessory muscles Auscultation: clear to auscultation bilaterally, no rales, no rhonchi and no wheezes Cardio Rate: regular rate Rhythm: regular rhythm Heart Sounds: no click, no gallops, no murmurs and no rubs Pulses: normal peripheral pulses GI Inspection: non-distended Palpation: soft, no hepatosplenomegaly, No guarding, No pulsatile mass and No tender Auscultation: normal bowel sounds Back/Spine/Pelvis Back: No CVA tenderness Cervical Spine: cervical ROM normal and No pain with cervical ROM Thoracic/Lumbar Spine: thoracic and lumbar spine normal to inspection Skin General: no rashes or lesions noted, erythema, No jaundice and other (some mild hives on lower belly) Neuro General: alert, oriented x3, gait normal and no focal motor deficits Speech: speech normal Extrem General: full ROM, no clubbing, cyanosis or edema, no pedal edema and no calf tenderness Psych Appearance: well kempt Mental Status: mental status grossly normal Attitude: cooperative Thought Content: normal and suicidality Judgment: judgment good Course Orders Ordered: Discontinued Medications Diphenhydramine HCl (Benadryl) 25 mg IV NOW ONE Stop: 03/21/19 18:38 Last Admin: 03/21/19 18:40 Dose: 25 mg Documented by: MARYLOU Epinephrine HCl (Adrenalin) 0.5 mg IM NOW ONE Stop: 03/21/19 18:38 Last Admin: 03/21/19 18:40 Dose: 0.5 mg Documented by: MARYLOU Famotidine (Pepcid) 20 mg in 50 mls @ 200 mls/hr IV NOW ONE Stop: 03/21/19 18:51 Last Infusion: 03/21/19 19:01 Dose: 0 mls/hr Documented by: Admin: 03/21/19 18:40 Dose: 200 mls/hr Documented by: MARYLOU Methylprednisolone (Solu-Medrol 125 Mg Vial) 125 mg IV NOW ONE Stop: 03/21/19 18:38 Last Admin: 03/21/19 18:25 Dose: 125 mg Documented by: MARYLOU Reevaluation(s) Reevaluation #1: near complete resolution of symptoms after above stated therapies Vital Signs Vital signs: Vital Signs - 8 hr 03/21/19 18:24 03/21/19 19:15 03/21/19 19:45 Pulse Rate 93 H 76 74 Respiratory Rate 13 16 Blood Pressure 126/70 Blood Pressure [Left Arm] 128/56 L 124/57 L Pulse Oximetry 94 99 96 03/21/19 20:05 Pulse Rate 73 Respiratory Rate Blood Pressure Blood Pressure [Left Arm] 134/55 L Pulse Oximetry 93 Discharge Plan Departure Patient Disposition: Home Clinical Impression: Allergic reaction Qualifiers: Encounter type: subsequent encounter Qualified Code(s): T78.40XD - Allergy, unspecified, subsequent encounter Discharge Date/Time: 03/21/19 20:28 Instructions: DI for General Allergic Reactions Activity Restrictions/Additional Instructions: *You have been diagnosed with [generalized allergic reaction] *What to do: *Take medications as directed *Follow up with your primary care provider in 2-3 days, call for an appointment. Let them know you were seen in the Emergency Department and that we ask that you be seen in follow up *Return to ER if you should have any new, worsening or concerning symptoms Prescriptions: New prednisone 20 mg tablet 20 mg PO DAILY Qty: 5 RF: 0 epinephrine [EpiPen 2-Elier] 0.3 mg/0.3 mL auto-injector 0.3 mg IM Q15M PRN (Reason: anaphylaxis) Qty: 2 RF: 0 No Action amiodarone 200 mg Tablet 200 mg PO DAILY RF: 0 alendronate 70 mg Tablet 70 mg PO QWEEK RF: 0 potassium chloride [K-Tab] 10 mEq Tablet Extended Release 10 meq PO DAILY RF: 0 tamsulosin 0.4 mg Capsule 0.4 mg PO QPM RF: 0 simvastatin 20 mg Tablet 20 mg PO QPM RF: 0 furosemide 20 mg Tablet 20 mg PO BID RF: 0 finasteride 5 mg Tablet 5 mg PO DAILY RF: 0 Pradaxa 150 mg Capsule 150 mg PO BID RF: 0 amlodipine 5 mg tablet 5 mg PO DAILY 30 Days Qty: 30 RF: 0 epinephrine [EpiPen] 0.3 mg/0.3 mL auto-injector 0.3 mg IM Q10M PRN (Reason: anaphylaxis) 30 Days Qty: 3 RF: 0 epinephrine [EpiPen] 0.3 mg/0.3 mL auto-injector 0.3 mg IM Q10M PRN (Reason: anaphylaxis) 30 Days Qty: 3 RF: 0
--- NOTE | 2019-03-21 19:02 | PC.NURSE ---
Patient hives have improved. Reports bottom lip feels almost completely normal slight fuzziness on lower right corner Breathing non labored and even.
[2019-03-21 19:15] VITALS: BP 128/56; PULSE 76; RESP 13; O2SAT 99
[2019-03-21 19:45] VITALS: BP 124/57; PULSE 74; RESP 16; O2SAT 96
[2019-03-21 20:05] VITALS: BP 134/55; PULSE 73; O2SAT 93
== END 2019-03-21 20:28 | disposition home or self-care (01) ==
PROVIDERS: Emergency Provider Emergency Medicine
DX: T78.40XD Allergy, unspecified, subsequent encounter (principal)
CPT/HCPCS: 36415; 96365; 96372; 96375; 99283; 99284; J0171; J1200; J2930

== ENCOUNTER 2019-03-22 10:41 | Emergency (ER) | payer OTHER, SELFPAY ==
[2019-03-12 18:20] VITALS: BMI 35.6
[2019-03-22] VITALS (7 sets, daily range): BP systolic 97–136; BP diastolic 60–70; PULSE 64–89; RESP 12–20; TEMP 36.8; O2SAT 95–98
--- NOTE | 2019-03-22 11:13 | DI.RAD.S_ITS ---
PROCEDURE: XR CHEST 1V INDICATIONS: chest pain TECHNIQUE: One view of the chest was acquired. COMPARISON: [facility], CR, XR CHEST 1V, 03/12/2019, 13:32. FINDINGS: Surgical changes and devices: Cardiac AICD Lungs and pleura: Low lung volumes with scattered subsegmental atelectasis/scarring. No pleural effusions or pneumothorax. Mediastinum: Mediastinal contours appear normal. Heart size is normal. Bones and chest wall: No suspicious bony lesions. Overlying soft tissues appear unremarkable. IMPRESSION: Low lung volumes with scattered subsegmental atelectasis/scarring. Dictated by: Jm Ospina M.D. on 03/22/2019 at 11:45 Approved by: Jm Ospina M.D. on 03/22/2019 at 11:47
[2019-03-22] MEDS: diphenhydrAMINE 50 MG/ML VIAL IV (11:14)
[2019-03-22] MEDS: SODIUM CHLORIDE 0.9% 1,000 ML 250 ML IV (11:14)
[2019-03-22] MEDS: FAMOTIDINE 20 MG/50 ML PIGGYBACK 200 MG IV (11:15)
[2019-03-22] MEDS: methylPREDNISolone 125 MG/2 ML VIAL IV (11:15)
[2019-03-22] MEDS: ONDANSETRON 4 MG/2 ML INJ IV (11:26)
--- NOTE | 2019-03-22 11:38 | PC.NURSE ---
Pt's son is allergic to amlodipine. Pt's amlodipine recently doubled to 5 mg from 2.5mg. Pt c/o chest pain, sub sternal, 7/10 w/ nausea. Medicated for nausea w/ zofran. [place], warm, dry (except for hives). Short of breath w/ exertion. H/o AICD/Pacemaker. Denies h/o AK. Does state he has been told he has an enlarged heart in the past. Provider aware, holding ntg at this time.
[2019-03-22 12:07] LABS: Add Manual Diff / Slide Review NO; Basophils Absolute Auto 100 /uL (0-100); Basophils Percent Auto 0.6 % (0-2); Eosinophils Absolute Auto 0 /uL (0-450); Hematocrit 48.5 % (41-53); Hemoglobin 16.8 g/dL (13.5-17.5); Lymphocytes Absolute Auto 900 /uL (1100-4500); Lymphocytes Percent Auto 4.4 % (25-40); Mean Corpuscular HGB Conc 34.5 % (30-36); Mean Corpuscular Hemoglobin 31.2 PG (26-34); Mean Corpuscular Volume 90.2 fL (80-100); Monocytes Absolute Auto 500 /uL (0-900); Monocytes Percent Auto 2.4 % (3-14); Neutrophils Absolute Auto 18900 /uL (1500-7000); Neutrophils Percent Auto 92.6 % (50-75); Platelet Count 244 X10^3/uL (150-400); Red Blood Cell Count 5.38 X10^6/uL (4.5-5.9); Red Cell Distribution Width 13.4 % (11.6-14.8); White Blood Cell Count 20.4 X10^3/uL (4.5-11.0)
[2019-03-22 12:14] LABS: INR 1.1 (0.9-1.3); Prothrombin Time 12.7 SECONDS (10.1-12.7)
[2019-03-22 12:16] LABS: PTT Partial Thromboplastin Tim 39 SECONDS (26.4-36.2)
[2019-03-22 12:17] LABS: Alanine Aminotransferase 43 IU/L (21-72); Albumin Globulin Ratio 1.5 (1.0-2.8); Alkaline Phosphatase 76 U/L (38-126); Aspartate Aminotransferase 47 IU/L (17-59); BUN Creatinine Ratio 28.8 (6-22); Blood Urea Nitrogen 23 mg/dL (9-20); Calcium 8.8 mg/dL (8.4-10.2); Carbon Dioxide 23 mmol/L (22-32); Chloride 104 mmol/L (98-107); Creatine Kinase 53 U/L (55-170); Estimated Glomerular Filt Rate > 60.0 mL/min (>60); Globulin 2.6 g/dL (1.7-4.1); Glucose 208 mg/dL (80-110); HEMOLYSIS 20 (0-50); Lipase 78 U/L (23-300); Magnesium 1.9 mg/dL (1.6-2.3); Sodium 135 mmol/L (137-145); Total Protein 6.6 g/dL (6.3-8.2)
[2019-03-22 12:29] LABS: Troponin I 0.013 ng/mL (0.01-0.034)
[2019-03-22 14:00] LABS: Troponin I 0.014 ng/mL (0.01-0.034)
--- NOTE | 2019-03-22 14:55 | ED_ITS ---
HPI - Allergic Reaction General Chief complaint: Allergic Reaction Stated complaint: hives/itching here last night Time Seen by Provider: 03/22/19 11:00 Source: patient Mode of arrival: Ambulatory Limitations: no limitations History of Present Illness HPI narrative: Patient comes emergency department complaining of chest pain and nausea. Patient was seen here yesterday for an allergic reaction to an unknown allergen, and was treated with Benadryl, Pepcid, Solu-Medrol, and epinephrine at the time. Patient has had 2 allergic reactions in the last week and a half, and both of started with ?indigestion?. Patient states that after he got home last night, he was feeling a little better, but still having the sensation of ?indigestion?. He states that he did become nauseated and vomited once. Patient denies any shortness of breath. No sensation of swelling of his lips, tongue, or throat, but the patient does note that his hives seemed to flare up again this morning. However, he does state that this is doing a lot better now. The patient denies any history of cardiac issues and is not known to have co ronary artery disease. States he has not been having any chest pain outside of these allergic reactions. He states that the feeling in his chest has been more a burning and nauseated sensation. Patient denies fevers or cough. He reports no new symptoms since he was last seen yesterday, otherwise. Related Data Home Medications Medication Instructions Recorded Confirmed Pradaxa 150 mg PO BID 03/12/19 03/22/19 alendronate 70 mg PO QWEEK 03/12/19 03/22/19 amiodarone 200 mg PO DAILY 03/12/19 03/22/19 finasteride 5 mg PO DAILY 03/12/19 03/22/19 furosemide 20 mg PO DAILY 03/12/19 03/22/19 potassium chloride [K-Tab] 10 meq PO DAILY 03/12/19 03/22/19 simvastatin 20 mg PO QPM 03/12/19 03/22/19 tamsulosin 0.4 mg PO QPM 03/12/19 03/22/19 Previous Rx's Medication Instructions Recorded amlodipine 5 mg PO DAILY 30 Days #30 tab 03/13/19 epinephrine [EpiPen 2-Elier] 0.3 mg IM Q15M PRN #2 each 03/21/19 prednisone 20 mg PO DAILY #5 tab 03/21/19 Allergies Allergy/AdvReac Type Severity Reaction Status Date / Time Iodine and Iodide Containing Allergy Verified 03/22/19 10:55 Produc Review of Systems Review of Systems ROS Unobtainable: All systems reviewed & are unremarkable except as noted in HPI and below Constitutional Constitutional: Denies chills, Denies fatigue, Denies fever(s), Denies frequent falls, Denies lethargy and Denies weakness Eyes Eyes: Denies change in vision, Denies eye discharge, Denies irritation and Denie s loss of vision ENT Ears, Nose, Mouth, and Throat: Denies change in voice, Denies dizziness, Denies neck pain, Denies sore throat and Denies throat swelling Cardiovascular Cardiovascular: Reports chest pain (Burning), Denies irregular heart rhythm, Denies lightheadedness, Denies palpitations, Denies dyspnea, Denies dyspnea on exertion and Denies orthopnea Respiratory Respiratory: Denies cough, Denies dyspnea, Denies dyspnea on exertion and Denies wheezing Gastrointestinal Gastrointestinal: Denies abdominal pain, Denies change in bowel habits, Denies diarrhea, Reports nausea and Denies vomiting Genitourinary Genitourinary: Denies hematuria, Denies flank pain, Denies urinary incontinence and Denies urinary urgency Musculoskeletal Musculoskeletal: Denies back pain, Denies muscle weakness, Denies neck pain, Denies numbness and Denies tingling Integumentary/Breasts Skin/Breast: Denies pruritus, Denies erythema, Reports rash (Urticarial) and Denies wounds Neurologic Neurologic: Denies behavioral changes, Denies confusion, Denies dizziness, Denies frequent falls, Denies loss of vision, Denies numbness, Denies tingling and Denies weakness Psychiatric Psychiatric: Denies anxiety, Denies behavioral changes, Denies confusion, Denies depression, Denies homicidal ideation and Denies suicidal ideation Endocrine Endocrine: Denies fatigue, Denies flushing and Denies palpitations Hematologic/Lymphatic Hematologic/Lymphatic: Denies easy bruising Allergic/Immunologic Allergic/Immunologic: Denies urticaria, Denies throat swelling and Denies wheezing Patient History Social History (Updated 03/12/19 @ 15:26 by Batsheva Trevino DO) household members: family Smoking Status: Never smoker alcohol intake: current substance use type: does not use alcohol intake frequency: 0-2 drinks per day Substance Use Type: does not use Exam Initial Vital Signs Initial Vital Signs: Vital Signs Temperature 98.2 F 03/22/19 10:45 Pulse Rate 89 03/22/19 10:45 Respiratory Rate 20 03/22/19 10:45 Blood Pressure 116/65 03/22/19 10:45 Pulse Oximetry 95 03/22/19 10:45 Course Course Course Narrative: Patient was worked up with labs, EKG, and chest x-ray. He was actually quite well appearing compared to when he was seen last night, as I did initially see him at that time. The patient was given doses of Benadryl, Pepcid, Solu-Medrol, and Zofran, as well as 1 L bolus 0.9 normal saline. His workup was unremarkable, other than a leukocytosis, which I feel is most likely due to the repeated doses of steroids the patient has received.. I did repeat a troponin to be sure that his discomfort did not represent a non ST elevation [place]. This was also unremarkable. We have discussed home management of symptoms, as well as the need for follow-up with an pediatric pathologist. We have called the patient's primary care service, which is [place], to inform them of the patient's need to get an appointment. The patient has been informed that he will need to call [place] to change his address from [place], [place], to here, and then he can be seen in their clinic here. Patient and his significant other expressed understanding. We have referred him to the allergy clinic for follow-up, as well. we have discussed the usual indications for return, as well as home management of the symptoms. We have keeping a record by journal of the circumstances surrounding each reaction to try to establish a pattern and get a better idea of what is causing the allergic reactions. Orders Ordered: Discontinued Medications Diphenhydramine HCl (Benadryl) 50 mg IV NOW ONE Stop: 03/22/19 11:13 Last Admin: 03/22/19 11:14 Dose: 50 mg Documented by: ALPHONSO Sodium Chloride (Normal Saline 0.9%) 1,000 mls @ 250 mls/hr IV BOLUS ONE Stop: 03/22/19 15:10 Last Infusion: 03/22/19 15:05 Dose: 0 mls/hr Documented by: Admin: 03/22/19 11:14 Dose: 250 mls/hr Documented by: ALPHONSO Famotidine (Pepcid) 20 mg in 50 mls @ 200 mls/hr IV NOW ONE Stop: 03/22/19 11:26 Last Infusion: 03/22/19 11:27 Dose: 0 mls/hr Documented by: Admin: 03/22/19 11:15 Dose: 200 mls/hr Documented by: ALPHONSO Methylprednisolone (Solu-Medrol 125 Mg Vial) 125 mg IV NOW ONE Stop: 03/22/19 11:13 Last Admin: 03/22/19 11:15 Dose: 125 mg Documented by: ALPHONSO Ondansetron HCl (Zofran) 4 mg IV NOW ONE Stop: 03/22/19 11:12 Last Admin: 03/22/19 11:26 Dose: 4 mg Documented by: ALPHONSO Vital Signs Vital signs: Vital Signs - 8 hr 03/22/19 10:45 03/22/19 10:55 03/22/19 11:01 Temperature 98.2 F Pulse Rate 84 88 80 Respiratory Rate 16 18 15 Blood Pressure 116/65 Blood Pressure [Right Arm] 116/65 97/62 107/60 Pulse Oximetry 95 97 95 03/22/19 11:20 03/22/19 12:45 03/22/19 13:02 Temperature Pulse Rate 79 65 64 Respiratory Rate 16 12 16 Blood Pressure Blood Pressure [Right Arm] 115/67 130/67 136/70 Pulse Oximetry 98 98 98 MDM - Allergic Reaction Medical Records Attestation: I reviewed the patient's medical records. Lab Data Attestation: I reviewed the patient's lab results. Result diagrams: 03/22/19 11:59 03/22/19 11:59 Labs: Lab Results 03/22/19 03/22/19 03/22/19 Range/Units 11:59 11:59 11:59 WBC 20.4 H (4.5-11.0) X10^3/uL RBC 5.38 (4.5-5.9) X10^6/uL Hgb 16.8 (13.5-17.5) g/dL Hct 48.5 (41-53) % MCV 90.2 (80-100) fL MCH 31.2 (26-34) PG MCHC 34.5 (30-36) % RDW 13.4 (11.6-14.8) % Plt Count 244 (150-400) X10^3/uL Neut % (Auto) 92.6 H (50-75) % Lymph % (Auto) 4.4 L (25-40) % Faulk % (Auto) 2.4 L (3-14) % Eos % (Auto) 0.0 L (2-4) % Baso % (Auto) 0.6 (0-2) % Neut # (Auto) 23194 H (2180-0175) /uL Lymph # (Auto) 900 L (2239-6274) /uL Faulk # (Auto) 500 (0-900) /uL Eos # (Auto) 0 (0-450) /uL Baso # (Auto) 100 (0-100) /uL PT 12.7 (10.1-12.7) SECONDS INR 1.1 (0.9-1.3) APTT 39 H (26.4-36.2) SECONDS Sodium 135 L (137-145) mmol/L Potassium 4.0 (3.4-5.1) mmol/L Chloride 104 (98-107) mmol/L Carbon Dioxide 23 (22-32) mmol/L BUN 23 H (9-20) mg/dL Creatinine 0.80 (0.66-1.25) mg/dL Estimated GFR > 60.0 (>60) mL/min BUN/Creatinine Ratio 28.8 H (6-22) Glucose 208 H (80-110) mg/dL Calcium 8.8 (8.4-10.2) mg/dL Magnesium 1.9 (1.6-2.3) mg/dL Total Bilirubin 1.0 (0.2-1.3) mg/dL AST 47 (17-59) IU/L ALT 43 (21-72) IU/L Alkaline Phosphatase 76 (38-126) U/L Total Creatine Kinase 53 L (55-170) U/L CK-MB (CK-2) TNP CK-MB (CK-2) Rel Index TNP Troponin I 0.013 (0.01-0.034) ng/mL Total Protein 6.6 (6.3-8.2) g/dL Albumin 4.0 (3.5-5.0) g/dL Globulin 2.6 (1.7-4.1) g/dL Albumin/Globulin Ratio 1.5 (1.0-2.8) Lipase 78 (23-300) U/L 03/22/19 Range/Units 13:28 WBC (4.5-11.0) X10^3/uL RBC (4.5-5.9) X10^6/uL Hgb (13.5-17.5) g/dL Hct (41-53) % MCV (80-100) fL MCH (26-34) PG MCHC (30-36) % RDW (11.6-14.8) % Plt Count (150-400) X10^3/uL Neut % (Auto) (50-75) % Lymph % (Auto) (25-40) % Faulk % (Auto) (3-14) % Eos % (Auto) (2-4) % Baso % (Auto) (0-2) % Neut # (Auto) (8769-7709) /uL Lymph # (Auto) (0996-4439) /uL Faulk # (Auto) (0-900) /uL Eos # (Auto) (0-450) /uL Baso # (Auto) (0-100) /uL PT (10.1-12.7) SECONDS INR (0.9-1.3) APTT (26.4-36.2) SECONDS Sodium (137-145) mmol/L Potassium (3.4-5.1) mmol/L Chloride (98-107) mmol/L Carbon Dioxide (22-32) mmol/L BUN (9-20) mg/dL Creatinine (0.66-1.25) mg/dL Estimated GFR (>60) mL/min BUN/Creatinine Ratio (6-22) Glucose (80-110) mg/dL Calcium (8.4-10.2) mg/dL Magnesium (1.6-2.3) mg/dL Total Bilirubin (0.2-1.3) mg/dL AST (17-59) IU/L ALT (21-72) IU/L Alkaline Phosphatase (38-126) U/L Total Creatine Kinase (55-170) U/L CK-MB (CK-2) CK-MB (CK-2) Rel Index Troponin I 0.014 (0.01-0.034) ng/mL Total Protein (6.3-8.2) g/dL Albumin (3.5-5.0) g/dL Globulin (1.7-4.1) g/dL Albumin/Globulin Ratio (1.0-2.8) Lipase (23-300) U/L Imaging Data Chest x-ray: Radiologist's impression: PROCEDURE: XR CHEST 1V INDICATIONS: chest pain TECHNIQUE: One view of the chest was acquired. COMPARISON: [facility], , XR CHEST 1V, 03/12/2019, 13:32. FINDINGS: Surgical changes and devices: Cardiac AICD Lungs and pleura: Low lung volumes with scattered subsegmental atelectasis/scarring. No pleural effusions or pneumothorax. Mediastinum: Mediastinal contours appear normal. Heart size is normal. Bones and chest wall: No suspicious bony lesions. Overlying soft tissues appear unremarkable. IMPRESSION: Low lung volumes with scattered subsegmental atelectasis/scarring. Dictated by: mJ Ospina M.D. on 03/22/2019 at 11:45 Approved by: Jm Ospina M.D. on 03/22/2019 at 11:47 ECG Data Attestation: I personally reviewed and interpreted this ECG as follows: (See below) Interpretation: Twelve lead EKG performed March 22 2019 at 11:17 a.m., as follows: Slightly irregular ventricular rhythm with a normal rate at 78 beats per minute P waves visible, but somewhat obscured by artifact QRS duration 141 millisecond QTC interval [address] T wave changes Interpretation: Sinus arrhythmia; marked left axis deviation; left bundle- branch block; no signs of acute ischemia; abnormal EKG as interpreted by ED MD. Disagree with the computer reading of ?atrial fibrillation?. Discharge Plan Departure Patient Disposition: Home Clinical Impression: Chest pain Qualifiers: Chest pain type: unspecified Qualified Code(s): R07.9 - Chest pain, unspecified Allergic reaction Qualifiers: Encounter type: subsequent encounter Qualified Code(s): T78.40XD - Allergy, unspecified, subsequent encounter Gastroesophageal reflux disease Qualifiers: Esophagitis presence: with esophagitis Qualified Code(s): K21.0 - Gastro- esophageal reflux disease with esophagitis Discharge Date/Time: 03/22/19 15:06 Instructions: DI for Gastroesophageal Reflux Disease (GERD), DI for General Allergic Reactions, DI for Chest Pain Activity Restrictions/Additional Instructions: Your labs look good. There evidence a serious condition causing your chest discomfort. Most likely, the discomfort is coming from the top your stomach and your esophagus. It is very important that you follow up in primary care and get established with somebody to see up here for your medical problems. Please follow the instructions given by the nurse regarding changing her official address with [place]. You should also follow up with an dermatology specialist to determine why you continue to have allergic reactions. Prescriptions: No Action amiodarone 200 mg Tablet 200 mg PO DAILY RF: 0 alendronate 70 mg Tablet 70 mg PO QWEEK RF: 0 potassium chloride [K-Tab] 10 mEq Tablet Extended Release 10 meq PO DAILY RF: 0 tamsulosin 0.4 mg Capsule 0.4 mg PO QPM RF: 0 simvastatin 20 mg Tablet 20 mg PO QPM RF: 0 furosemide 20 mg Tablet 20 mg PO DAILY RF: 0 finasteride 5 mg Tablet 5 mg PO DAILY RF: 0 Pradaxa 150 mg Capsule 150 mg PO BID RF: 0 amlodipine 5 mg tablet 5 mg PO DAILY 30 Days Qty: 30 RF: 0 prednisone 20 mg tablet 20 mg PO DAILY Qty: 5 RF: 0 epinephrine [EpiPen 2-Elier] 0.3 mg/0.3 mL auto-injector 0.3 mg IM Q15M PRN (Reason: anaphylaxis) Qty: 2 RF: 0 Referrals: [facility] [Provider Group]
== END 2019-03-22 15:06 | disposition home or self-care (01) ==
PROVIDERS: Emergency Provider Emergency Medicine
DX: T78.40XA Allergy, unspecified, initial encounter (principal); R07.9 Chest pain, unspecified; K21.0 Gastro-esophageal reflux disease with esophagitis
CPT/HCPCS: 36415; 71045; 80053; 82550; 83690; 83735; 84484; 85025; 85610; 85730; 93005; 96361; 96374; 96375; 99284; 99285; J1200; J2405; J2930

== ENCOUNTER 2021-04-28 22:21 | Emergency (ER) | payer OTHER, SELFPAY ==
[2019-03-12 18:20] VITALS: BMI 35.6
[2021-04-28 22:29] VITALS: BP 112/90; PULSE 82; RESP 20; TEMP 36.2; O2SAT 97
--- NOTE | 2021-04-28 22:52 | PC.NURSE ---
Denies tongue or throat swelling, no hoarse voice. Evaluated by Dr. Corado.
[2021-04-28] MEDS: methylPREDNISolone 125 MG/2 ML VIAL IV (22:58)
[2021-04-28] MEDS: FAMOTIDINE 20 MG/2 ML VIAL IV (22:58)
[2021-04-28 23:30] VITALS: BP 126/62; PULSE 69; RESP 17; O2SAT 96
--- NOTE | 2021-04-29 00:52 | PC.NURSE ---
Hives are gone from body, patient reports no symptoms and feels better.
--- NOTE | 2021-04-29 00:53 | ED_ITS ---
HPI - Allergic Reaction General Chief complaint: Allergic Reaction Stated complaint: states anaphylaxis Time Seen by Provider: 04/29/21 00:09 Source: patient Mode of arrival: Wheelchair Limitations: no limitations History of Present Illness HPI narrative: Patient is an 85-year-old male who states that he has anaphylactic reactions to an unknown cause. He presents today with hives. He said that he previously had hives last week he took Benadryl which helped last week but now is having more hives. He has no tongue swelling lip swelling difficulty breathing or throat scratching. Unsure what he is allergic to. He did not use his EpiPen, says that they are . Related Data Home Medications Medication Instructions Recorded Confirmed alendronate 70 mg tablet 70 mg PO QWEEK 03/12/19 03/22/19 amiodarone 200 mg tablet 200 mg PO DAILY 03/12/19 03/22/19 dabigatran etexilate 150 mg 150 mg PO BID 03/12/19 03/22/19 capsule (Pradaxa) finasteride 5 mg tablet 5 mg PO DAILY 03/12/19 03/22/19 furosemide 20 mg tablet 20 mg PO DAILY 03/12/19 03/22/19 potassium chloride 10 mEq 10 meq PO DAILY 03/12/19 03/22/19 tablet,extended release (K-Tab) simvastatin 20 mg tablet 20 mg PO QPM 03/12/19 03/22/19 tamsulosin 0.4 mg capsule 0.4 mg PO QPM 03/12/19 03/22/19 Previous Rx's Medication Instructions Recorded epinephrine 0.3 mg/0.3 mL 0.3 mg (0.3 mL) IM Q15M PRN #2 each 03/21/19 injection, auto-injector (EpiPen 2-Elier) prednisone 20 mg tablet 20 mg PO DAILY #5 tab 03/21/19 Allergies Allergy/AdvReac Type Severity Reaction Status Date / Time Iodine and Iodide Containing Allergy Verified 03/22/19 10:55 Produc Review of Systems Review of Systems Narrative: GENERAL: Denies chills,fever HEENT: Denies throat pain RESPIRATORY: Denies dyspnea, cough, wheezing CARDIOVASCULAR: Denies chest pain, palpitations GASTROINTESTINAL: Denies nausea, vomiting MUSCULOSKELETAL: Denies extremity pain, injury SKIN: See HPI NEUROLOGIC: Denies weakness, dizziness, headache, numbness 8 point review of systems is negative except for those stated above and HPI Patient History Medical History (Updated 04/29/21 @ 00:58 by Milli Corado DO) Arrhythmia Atrial fibrillation BPH (benign prostatic hyperplasia) Hyperlipidemia Hypertension Osteoporosis Surgical History AICD (automatic cardioverter/defibrillator) present H/O cataract removal with insertion of prosthetic lens H/O umbilical hernia repair History of tonsillectomy Family History Mother Cervical cancer Father No problems noted. Social History (Updated 03/12/19 @ 15:26 by Batsheva Trevino DO) household members: family Smoking Status: Never smoker alcohol intake: current substance use type: does not use Smoking Status: Never smoker alcohol intake frequency: 0-2 drinks per day Substance Use Type: does not use Exam Initial Vital Signs Initial Vital Signs: Vital Signs Temperature 97.2 F L 04/28/21 22:29 Pulse Rate 82 04/28/21 22:29 Respiratory Rate 20 04/28/21 22:29 Blood Pressure 112/90 04/28/21 22:29 Pulse Oximetry 97 04/28/21 22:29 GENERAL: Alert 85-year-old male in no acute distress. HEENT: Head atraumatic,EOMI, pupils reactive, face symmetric, moist mucous membranes CARDIOVASCULAR: Regular rate and rhythm without murmurs, rubs or gallops. RESPIRATORY: Breath sounds equal bilaterally, no wheezes rales or rhonchi. ABDOMEN: Soft, nontender. Normoactive bowel sounds all 4 quadrants. No guarding or rebound. EXTREMITIES: Normal range of motion, no clubbing or edema. Neurovascularly intact NEUROLOGICAL: Alert and oriented x4. SKIN: Hives, on extremities noted. No abscess no scaling lesion no vesicle Course Orders Ordered: Discontinued Medications Famotidine (Famotidine 20 Mg/2 Ml Vial) 20 mg IV NOW KATALINA Last Admin: 04/28/21 22:58 Dose: 20 mg Documented by: SANDI Methylprednisolone (Methylprednisolone 125 Mg/2 Ml Vial) 125 mg IV NOW ONE Stop: 04/28/21 22:52 Last Admin: 04/28/21 22:58 Dose: 125 mg Documented by: SANDI Vital Signs Vital signs: Vital Signs - 8 hr 04/28/21 23:30 04/29/21 00:55 Pulse Rate 69 66 Respiratory Rate 17 17 Blood Pressure 126/62 133/61 Pulse Oximetry 96 96 MDM - Allergic Reaction MDM Narrative Medical decision making narrative: Patient is overall feeling significantly better with Solu-Medrol. This time no sign of anaphylaxis. He took Benadryl prior to arrival. Recommended out patient allergy testing. Discharge Plan Departure Patient Disposition: Home Clinical Impression: Allergic reaction Instructions: DI for Hives Activity Restrictions/Additional Instructions: *You have been diagnosed with allergic reaction *What to do: At this time no evidence of anaphylaxis. However do recommend that he have not already had allergy testing that you should get it. Please talk to your primary care provider. *Continue to take medications as directed Benadryl 25-50 mg every 6 hours only if needed for itching and hives *Follow up with your primary care provider in 2-3 days *Return to ER if you should have lip swelling tongue swelling difficulty jayla thing chest pain, shortness of breath or any new, worsening or concerning symptoms Prescriptions: No Action amiodarone 200 mg Tablet 200 mg PO DAILY 0RF alendronate 70 mg Tablet 70 mg PO QWEEK 0RF Label Comments: tuesday potassium chloride [K-Tab] 10 mEq Tablet Extended Release 10 meq PO DAILY 0RF tamsulosin 0.4 mg Capsule 0.4 mg PO QPM 0RF simvastatin 20 mg Tablet 20 mg PO QPM 0RF furosemide 20 mg Tablet 20 mg PO DAILY 0RF finasteride 5 mg Tablet 5 mg PO DAILY 0RF Pradaxa 150 mg Capsule 150 mg PO BID 0RF prednisone 20 mg tablet 20 mg PO DAILY Qty: 5 0RF Rx Instructions: administer with food or milk epinephrine [EpiPen 2-Elier] 0.3 mg/0.3 mL auto-injector 0.3 mg IM Q15M PRN (Reason: anaphylaxis) Qty: 2 0RF Rx Instructions: until response
[2021-04-29 00:55] VITALS: BP 133/61; PULSE 66; RESP 17; O2SAT 96
== END 2021-04-29 01:06 | disposition home or self-care (01) ==
PROVIDERS: Emergency Provider Emergency Medicine
DX: L50.0 Allergic urticaria (principal)
CPT/HCPCS: 96374; 96375; 99283; J2930